=== PATIENT | female | born 1950 | race Caucasian/White ===

== ENCOUNTER → 2022-04-19 | Outpatient (CLI) | payer OTHER ==
[~2022-04-19] MED LIST: Acidophilus La100 GM; CALCAVITD PO; FENO160 PO; LECITHIN400 MG PO; LOVA40; MAGCIT300 PO; PROP80ER; RANI150 PO; ZESTORETIC 20-251 EA; [UNRECOGNIZED DRUG - OTHER] PO
== END | disposition home or self-care (01) ==
LOC: LAB SHORT 07:54
DX: B35.1 Tinea unguium (principal)
CPT/HCPCS: 88305; 88312

== ENCOUNTER 2022-05-03 16:28 | Emergency (ER) | payer OTHER ==
[~2022-05-03] VITALS: Ht 167.6 cm; Wt 127.0 kg
[2022-05-03 16:41] LABS: Source, Urine Fem Cath
[2022-05-03 17:00] LABS: Appearance, Urine Hazy (Clear); Bilirubin, Urine Neg (Neg); Blood, Urine Neg (Neg); Color, Urine Yellow (P-Yellow); Glucose Qualitative, Urine Neg (Neg); Ketones, Urine Neg (Neg); Leukocyte Esterase, Urine Neg (Neg); Nitrite, Urine Neg (Neg); Protein, Urine Neg (Neg); Urobilinogen, Urine NORM (Normal)
[2022-05-03 17:11] LABS: BASOPHILS ABSOLUTE AUTO 0.06 K/mm3 (0.00-0.23); BASOPHILS PERCENT AUTO 1 % (0-2); EOSINOPHILS ABSOLUTE AUTO 0.28 K/mm3 (0.00-0.68); EOSINOPHILS PERCENT AUTO 2 % (0-6); Hematocrit 42.4 % (33.0-51.0); Hemoglobin 13.7 g/dL (11.5-16.0); IMMATURE GRAN ABSOLUTE AUTO 0.05 K/mm3 (0.00-0.10); IMMATURE GRAN PERCENT AUTO 0 % (0-1); LYMPHOCYTES ABSOLUTE AUTO 2.43 K/mm3 (0.84-5.20); LYMPHOCYTES PERCENT AUTO 19 % (21-46); MONOCYTES ABSOLUTE AUTO 1.34 K/mm3 (0.16-1.47); MONOCYTES PERCENT AUTO 11 % (4-13); Mean Corpuscular HGB Conc 32.3 g/dL (31.5-36.5); Mean Corpuscular Volume 99 fL (80-100); Mean Platelet Volume 11.4 fL (9.1-12.4); NEUTROPHILS ABSOLUTE AUTO 8.42 K/mm3 (1.96-9.15); NEUTROPHILS PERCENT AUTO 67 % (41-73); Platelet Count 340 K/mm3 (150-400); RDW Coefficient Variation 13.8 % (11.7-14.2); RDW Standard Deviation 50.2 fL (35.1-46.3); Red Blood Cell Count 4.28 M/mm3 (3.80-5.20); White Blood Cell Count 12.58 K/mm3 (4.00-11.30)
[2022-05-03 17:33] LABS: Albumin, Blood 3.7 g/dL (3.4-5.0); Albumin/Globulin Ratio 0.9 (0.8-1.8); Bilirubin, Total 0.5 mg/dL (0.1-1.0); Bun/Creatinine Ratio 44.2 (12.0-20.0); Calcium, Blood 9.6 mg/dL (8.5-10.1); Creatinine, Blood 0.68 mg/dL (0.40-1.00); Globulin, Blood 3.9 g/dL (2.2-4.0); Potassium, Blood 4.1 mmol/L (3.5-5.5); Total Protein, Blood 7.6 g/dL (6.4-8.2)
[2022-05-03 17:42] LABS: Bacteria Few /hpf; Red Blood Cells, Urine 0-2 /hpf (0-2); Squamous Epithelial Cells Mod /hpf (Few); White Blood Cells, Urine 0-2 /hpf (0-5)
[2022-05-03] MEDS ORDERED: CEPH500 PO (18:52)
== END 2022-05-03 20:25 | disposition home or self-care (01) ==
LOC: ER 16:28
PROVIDERS: Emergency Medicine; Physician Assistant
DX: N30.90 Cystitis, unspecified without hematuria (principal); M16.12 Unilateral primary osteoarthritis, left hip; R91.1 Solitary pulmonary nodule; Z87.891 Personal history of nicotine dependence; Z79.899 Other long term (current) drug therapy; Z96.641 Presence of right artificial hip joint
CPT/HCPCS: 36415; 73030; 73502; 73562-LT; 80053; 81001; 85025; 93971; A9270; J1885

== ENCOUNTER 2022-05-06 22:29 | Emergency (ER) | payer OTHER ==
[~2022-05-06] VITALS: Ht 152.4 cm; Wt 84.8 kg
[~2022-05-06 22:29] MED LIST changes: +CEPH500 PO
== END 2022-05-07 05:05 | disposition home or self-care (01) ==
LOC: ER 22:29
DX: S16.1XXA Strain of muscle, fascia and tendon at neck level, initial encounter (principal); S09.90XA Unspecified injury of head, initial encounter; R40.2410 Glasgow coma scale score 13-15, unspecified time; K21.9 Gastro-esophageal reflux disease without esophagitis; I10 Essential (primary) hypertension; W18.30XA Fall on same level, unspecified, initial encounter; Y92.129 Unspecified place in nursing home as the place of occurrence of the external cause; Z79.899 Other long term (current) drug therapy
CPT/HCPCS: 70450; 72125; 73030; 73080; 99284-25; A9270

== ENCOUNTER 2025-03-12 10:48 | Observation (INO) | payer OTHER ==
[~2025-03-12] VITALS: Ht 162.6 cm; Wt 71.8 kg
[~2025-03-12 10:48] MED LIST changes: +ATOR40TA PO; +FUROSEMIDE20 MG PO; +MELO7.5; +MOBIC15 MG PO; +Micro-K10 MEQ PO; +OMEP20ER PO; -PROP80ER; +PROP80ER PO; +TRAM50 PO; -ZESTORETIC 20-251 EA; +ZESTORETIC 20-251 EA PO
[2025-03-12] MEDS ORDERED: FURO40 PO (11:27)
[2025-03-12] MEDS ORDERED: POTA20PAC PO (11:28)
[2025-03-12] MEDS ORDERED: MIRALAX17 GM PO (11:28)
[2025-03-12] MEDS ORDERED: FAMO20 PO (11:29)
[2025-03-12] MEDS ORDERED: SENN187 PO (11:29)
[2025-03-12] MEDS ORDERED: OCUVITE BLUE L1 EACH (11:30)
[2025-03-12] MEDS ORDERED: AMOCLA875 PO (11:30)
[2025-03-12] MEDS ORDERED: GUAI200 PO (11:30)
[2025-03-12 12:08] LABS: Source, Urine Foley catheter
[2025-03-12 12:13] LABS: BASOPHILS ABSOLUTE AUTO 0.04 K/mm3 (0.00-0.23); BASOPHILS PERCENT AUTO 0 % (0-2); EOSINOPHILS ABSOLUTE AUTO 0.18 K/mm3 (0.00-0.68); EOSINOPHILS PERCENT AUTO 1 % (0-6); Hematocrit 28.8 % (33.0-51.0); Hemoglobin 9.2 g/dL (11.5-16.0); IMMATURE GRAN ABSOLUTE AUTO 0.04 K/mm3 (0.00-0.10); IMMATURE GRAN PERCENT AUTO 0 % (0-1); LYMPHOCYTES PERCENT AUTO 9 % (21-46); MONOCYTES ABSOLUTE AUTO 1.18 K/mm3 (0.16-1.47); MONOCYTES PERCENT AUTO 8 % (4-13); Mean Corpuscular HGB Conc 31.9 g/dL (31.5-36.5); Mean Corpuscular Volume 88 fL (80-100); Mean Platelet Volume 9.6 fL (9.1-12.4); NEUTROPHILS ABSOLUTE AUTO 11.54 K/mm3 (1.96-9.15); NEUTROPHILS PERCENT AUTO 81 % (41-73); Platelet Count 492 K/mm3 (150-400); RDW Coefficient Variation 15.5 % (11.7-14.2); RDW Standard Deviation 49.4 fL (35.1-46.3); Red Blood Cell Count 3.29 M/mm3 (3.80-5.20); White Blood Cell Count 14.18 K/mm3 (4.00-11.30)
[2025-03-12 12:17] LABS: Appearance, Urine Clear (Clear); Bilirubin, Urine Neg (Neg); Blood, Urine 3+ (Neg); Color, Urine Yellow (P-Yellow); Glucose Qualitative, Urine Neg (Neg); Ketones, Urine Neg (Neg); Leukocyte Esterase, Urine Neg (Neg); Nitrite, Urine Neg (Neg); Protein, Urine 2+ (Neg); Urobilinogen, Urine NORM (Normal)
[2025-03-12 12:36] LABS: Albumin, Blood 2.4 g/dL (3.4-5.0); Albumin/Globulin Ratio 0.5 (0.8-1.8); Bilirubin, Total 0.5 mg/dL (0.1-1.0); Bun/Creatinine Ratio 50.3 (12.0-20.0); Calcium, Blood 8.8 mg/dL (8.5-10.1); Creatinine, Blood 0.4 mg/dL (0.40-1.00); Potassium, Blood 2.4 mmol/L (3.5-5.5); Total Protein, Blood 7.4 g/dL (6.4-8.2)
[2025-03-12 12:36] LABS: Squamous Epithelial Cells Rare /hpf (Few); White Blood Cells, Urine 0-2 /hpf (0-5)
[2025-03-12 12:37] LABS: Bacteria Not Seen /hpf; Hyaline Casts 0-2 /lpf (0-2)
[2025-03-12] MEDS ORDERED: NS 1,000 ML IV SCH (12:40)
[2025-03-12] MEDS ORDERED: Potassium Chloride 40 MEQ in NS 250 ML IV ONE ×2 (12:40→16:30)
[2025-03-12] MEDS ORDERED: Azithromycin 500 MG in NS 250 ML IV ONE (13:00)
[2025-03-12] MEDS ORDERED: CefTRIAXone Sodium 1,000 MG in NS 100 ML IV ONE (13:00)
[2025-03-12] MEDS ORDERED: Magnesium Hydroxide Conc 10 ML UDC PO PRN (13:55)
[2025-03-12] MEDS ORDERED: Ondansetron HCl 2 MG / ML 2ML Vial IV PRN (13:55)
[2025-03-12] MEDS ORDERED: UREA 15 GM POWD.PACK PO SCH (17:00)
[2025-03-12 17:23] VITALS: BP 141/86
[2025-03-12] MEDS ORDERED: TraMADol HCl 50 MG Tab PO PRN (17:35)
--- NOTE | 2025-03-12 18:09 | NUR ---
SHIFT SUMMARY PT A NEW ADMIT TO THE FLOOR THIS EVENING, AOX3. BEDREST. CHRONIC QUINONES, CHANGED IN THE ED. SPEAKS VERY LITTLE, MOSTLY YES OR NO ANSWERS. NEEDS ASSISTANCE WITH EATING. POSSIBLY GOING HOME ON HOSPICE TOMORROW. SISTER IS HER POALAM. WOUND TO COCCYX, PICTURES IN CHART. CALL LIGHT WITHIN REACH, BED LOCKED AND IN THE LOWEST POSITION. WILL REPORT TO ONCOMING NURSE.
[2025-03-12 19:45] VITALS: BP 105/74
[2025-03-12] MEDS ORDERED: GuaiFENesin 200 MG IR Tab PO SCH (21:00)
[2025-03-12] MEDS ORDERED: Sennosides 8.6 MG Tab PO SCH (21:00)
[2025-03-12] MEDS ORDERED: Amoxicillin/Clavulanate K 875 MG Tab PO SCH (21:00)
[2025-03-13 02:13] VITALS: BP 127/63
[2025-03-13 05:25] LABS: Hematocrit 27.6 % (33.0-51.0); Hemoglobin 8.5 g/dL (11.5-16.0); Mean Corpuscular HGB 27.5 pg (26.0-34.0); Mean Corpuscular HGB Conc 30.8 g/dL (31.5-36.5); Mean Corpuscular Volume 89 fL (80-100); Mean Platelet Volume 9.4 fL (9.1-12.4); Platelet Count 487 K/mm3 (150-400); RDW Coefficient Variation 15.5 % (11.7-14.2); RDW Standard Deviation 50.5 fL (35.1-46.3); Red Blood Cell Count 3.09 M/mm3 (3.80-5.20); White Blood Cell Count 11.96 K/mm3 (4.00-11.30)
[2025-03-13 05:54] LABS: Calcium, Blood 8.8 mg/dL (8.5-10.1); Creatinine, Blood 0.33 mg/dL (0.40-1.00); Potassium, Blood 3.3 mmol/L (3.5-5.5)
[2025-03-13 07:45] VITALS: BP 133/67
[2025-03-13] MEDS ORDERED: Potassium Chloride 20 MEQ TabCR PO ONE (08:20)
[2025-03-13] MEDS ORDERED: Famotidine 20 MG Tab PO SCH (09:00)
[2025-03-13] MEDS ORDERED: Furosemide 40 MG Tab PO SCH (09:00)
[2025-03-13] MEDS ORDERED: Beta-Carotene (A) W-C & E/Min 1 Tab PO SCH (09:00)
[2025-03-13 11:19] LABS: Adenovirus F 40/41 Not Detected (NOT DETECT); Astrovirus Not Detected (NOT DETECT); Campylobacter Sp Not Detected (NOT DETECT); Cryptosporidium Not Detected (NOT DETECT); Cyclospora Cayetanensis Not Detected (NOT DETECT); E. Coli O157 Not Detected (NOT DETECT); Entamoeba Histolytica Not Detected (NOT DETECT); Enteroaggregative E. coli-EAEC Not Detected (NOT DETECT); Enteropathogenic E. coli-EPEC Not Detected (NOT DETECT); Enterotoxigenic E. coli-ETEC Not Detected (NOT DETECT); Giardia Lamblia Not Detected (NOT DETECT); Norovirus GI/GII Not Detected (NOT DETECT); Plesiomonas Shigelloides Not Detected (NOT DETECT); Rotavirus A Not Detected (NOT DETECT); Salmonella Sp Not Detected (NOT DETECT); Sapovirus Not Detected (NOT DETECT); Shiga Toxin-prod E. coli-STEC Not Detected (NOT DETECT); Shigella/Enteroin E. coli-EIEC Not Detected (NOT DETECT); Vibrio Cholerae Not Detected (NOT DETECT); Vibrio Sp Not Detected (NOT DETECT); Yersinia Enterocolitica Not Detected (NOT DETECT)
--- NOTE | 2025-03-13 14:20 | NUR ---
DISCHARGE NOTE PT DISCHARGE TO [facility], ATTEMPTED TO CALL TO GIVE REPORT BUT WAS LEFT ON HOLD. IV'S REMOVED. PICKED UP BY [facility]. QUINONES IN PLACE. NO ACUTE CHANGES PRIOR TO DISCHARGE.
== END 2025-03-13 14:07 | disposition hospice, home (50) ==
LOC: ER 10:48 → MEDS 10:50 → ER 13:50 → MEDS 13:50 → ENPENDDIS 03-13 11:40 → MEDS 03-13 14:07
PROVIDERS: Emergency Medicine; ADMIT Internal Medicine
DX: J96.01 Acute respiratory failure with hypoxia (principal); E87.6 Hypokalemia; G92.8 Other toxic encephalopathy; R19.5 Other fecal abnormalities; E87.1 Hypo-osmolality and hyponatremia; C34.90 Malignant neoplasm of unspecified part of unspecified bronchus or lung; C79.9 Secondary malignant neoplasm of unspecified site; R62.50 Unspecified lack of expected normal physiological development in childhood; I10 Essential (primary) hypertension; K21.9 Gastro-esophageal reflux disease without esophagitis; Z79.899 Other long term (current) drug therapy
CPT/HCPCS: 36415; 51702; 71045; 71260; 80048; 80053; 81001; 84132; 85025; 85027; 87507; 93005; 93010; 96365-59; 96366; 99285-25; A9270; G0378; J0456; J0696; J3480; J7030; J7050; Q9967